=== PATIENT | female | born 1955 | race Caucasian/White ===

== ENCOUNTER 2019-05-11 16:00 | Emergency (ER) | payer BC, OTHER ==
[2019-05-11] MEDS ORDERED: SODIUM CHLORIDE 0.9% 1,000 ML IV STA (16:18)
[2019-05-11] MEDS ORDERED: MORPHINE SULFATE 4 MG/ML SYRINGE IV STA (16:18)
[2019-05-11] MEDS ORDERED: DIPH,PERTUS(ACELL)TETVAC-LF 0.5 ML VIAL IM ONE (16:27)
--- NOTE | 2019-05-11 16:34 | ED ---
General Adult HPI - General Source: patient, EMS, RN notes reviewed, old records reviewed Mode of arrival: EMS Limitations: no limitations <Gold Pro - Last Filed: 05/11/19 18:18> <Rehan Mitchell - Last Filed: 05/11/19 18:41> - General Chief complaint: Fall Stated complaint: Fall Time Seen by Provider: 05/11/19 16:09 - History of Present Illness Initial comments: 63-year-old female patient with no pertinent past history presents to ED chief complaint of fall. Patient daughter provides much of history taking. Reports the patient was carrying laundry up approximately 10 wooden stairs. Reports the patient slipped at the top and fell all the way down. She does report that there was loss of consciousness of approximately 5 minutes. Patient is currently complaining of pain in her back and pain in her hand. Denies any headache or changes in vision. Denies any symptoms blood thinners. Denies any other complaints. Systemic: Pt denies fatigue, fever/chills, rash. Pt denies weakness, night sweats, weight loss. Neuro: Pt denies headache, visual disturbances, syncope or pre-syncope. HEENT: Pt denies ocular discharge or irritation, otalgia, rhinorrhea, pharyngitis or notable lymphadenopathy. Cardiopulmonary: Pt denies chest pain, SOB, heart palpitations, dyspnea on exertion. Abdominal/GI: Pt denies abdominal pain, n/v/d. : Pt denies dysuria, burning w/ urination, frequency/urgency. Denies new onset urinary or bowel incontinence. MSK: Pt denies myalgia, loss of strength or function in extremities. Neuro: Pt denies new onset weakness, paresthesias. (Gold Pro) - Related Data Allergies Allergy/AdvReac Type Severity Reaction Status Date / Time No Known Allergies Allergy Verified 05/11/19 16:06 Review of Systems ROS Other: All systems not noted in ROS Statement are negative. <Gold Pro - Last Filed: 05/11/19 18:18> ROS Other: All systems not noted in ROS Statement are negative. <Rehan Mitchell - Last Filed: 05/11/19 18:41> ROS Statement: Those systems with pertinent positive or pertinent negative responses have been documented in the HPI. Past Medical History Past Medical History: Hypertension, Thyroid Disorder History of Any Multi-Drug Resistant Organisms: None Reported Past Surgical History: No Surgical Hx Reported Past Psychological History: No Psychological Hx Reported Smoking Status: Never smoker Past Alcohol Use History: Occasional Past Drug Use History: None Reported <Gold Pro - Last Filed: 05/11/19 18:18> General Exam Limitations: no limitations <Gold Pro - Last Filed: 05/11/19 18:18> - General Exam Comments Initial Comments: Constitutional: NAD, AOX3, Pt has pleasant affect. HEENT: NC/AT, trachea midline, neck supple, no lymphadenopathy. Posterior pharynx non erythematous, without exudates. External ears appear normal, without discharge. Mucous membranes moist. Eyes PERRLA, EOM intact. There is no scleral icterus. No pallor noted. Cardiopulmonary: RRR, no murmurs, rubs or gallops, no JVD noted. Lungs CTAB in anterior and posterior tompkins. No peripheral edema. Abdominal exam: Abdomen soft and non-distended. Abdomen non-tender to palpation in all 4 quadrants. Bowel sounds active in LLQ. No hepatosplenomegaly. No ecchymosis Neuro: CN II-XII intact. No nuchal rigidity. No raccon eyes, no castaneda sign, no hemotympanum. Mild amount of bilateral paracervical tenderness. Mild amount of thoracic tenderness. MSK: 3 centimeter laceration occipital lobe approximated with 3 juan. Vigorously irrigated. No posterior calf tenderness bilaterally, homans sign negative bilaterally. Posterior tibialis and radial pulse +2 bilaterally. Sensation intact in upper and lower extremities. Full active ROM in upper and lower extremities, 5/5 stregnth. (Gold Pro) Course <Rehan Mitchell - Last Filed: 05/11/19 18:41> Vital Signs 05/11/19 05/11/19 05/11/19 16:02 16:27 16:45 Temperature 96.9 F L 97.9 F Pulse Rate 127 H 110 H Respiratory 16 18 Rate Blood Pressure 184/85 148/74 O2 Sat by Pulse 97 98 Oximetry 05/11/19 18:17 Temperature Pulse Rate 106 H Respiratory 18 Rate Blood Pressure 144/68 O2 Sat by Pulse 97 Oximetry - Reevaluation(s) Reevaluation #1: 05/11/19 18:14 PA supervision: I proceeded [id number] evaluation the patient she did present by EMS after a fall done many steps. She did not trigger the trauma system. She did end up with evidence of a concussion with 45 minutes of loss of consciousness per her son who was present as well as scalp laceration contusions. The remainder the workup is not remarkable. I did a long discussion with the patient family regarding findings due to the presentation patient does require monitoring. No neurosurgical capability at this facility she'll be transferred to [facility]. The patient and family are agreeable with this. Please note the patient maintains a Christy Coma Scale of 15 throughout her emergency department stay. (Rehan Mitchell) Procedures - Laceration Laceration #1 Consent Obtained: verbal consent Site: scalp Size (cm): 3 Description: linear Type of Sutures: other (staple) Number of Sutures: 3 Patient Tolerated Procedure: well, no complications <Gold Pro - Last Filed: 05/11/19 18:18> Medical Decision Making - Lab Data Result diagrams: 05/11/19 16:21 05/11/19 16:21 <Gold Pro - Last Filed: 05/11/19 18:18> - Lab Data Result diagrams: 05/11/19 16:21 05/11/19 16:21 <Rehan Mitchell - Last Filed: 05/11/19 18:41> - Medical Decision Making C3-year[age] female patient presents to ED for evaluation of fall. Patient fell down approximately 10 stairs or loss of consciousness approximately 5 minutes. Upon arrival to ER patient chief complaint was thoracic and cervical neck pain, laceration back of hand, left hand pain. CT brain C-spine was obtained which displayed bilateral scalp hematomas no acute intracranial process. Cervical spine not displaying any acute fracture dislocation. Chest and pelvis was obtained which did not display acute process. Plain film hand was negative. Due to patient's loss of consciousness patient be transferred to [facility] for observation and if necessary neurosurgery consult. Case discussed and patie nt seen by Dr. Mitchell. (Gold Pro) - Lab Data Lab Results 05/11/19 05/11/19 Range/Units 16:21 16:21 WBC 15.7 H (3.8-10.6) k/uL RBC 4.49 (3.80-5.40) m/uL Hgb 14.8 (11.4-16.0) gm/dL Hct 42.2 (34.0-46.0) % MCV 93.8 (80.0-100.0) fL MCH 33.0 (25.0-35.0) pg MCHC 35.2 (31.0-37.0) g/dL RDW 12.2 (11.5-15.5) % Plt Count 295 (150-450) k/uL Neutrophils % 72 % Lymphocytes % 20 % Monocytes % 4 % Eosinophils % 1 % Basophils % 1 % Neutrophils # 11.4 H (1.3-7.7) k/uL Lymphocytes # 3.2 (1.0-4.8) k/uL Monocytes # 0.6 (0-1.0) k/uL Eosinophils # 0.2 (0-0.7) k/uL Basophils # 0.1 (0-0.2) k/uL Sodium 137 (137-145) mmol/L Potassium 3.4 L (3.5-5.1) mmol/L Chloride 101 (98-107) mmol/L Carbon Dioxide 25 (22-30) mmol/L Anion Gap 11 mmol/L BUN 16 (7-17) mg/dL Creatinine 0.66 (0.52-1.04) mg/dL Est GFR (CKD-EPI)AfAm >90 (>60 ml/min/1.73 sqM) Est GFR (CKD-EPI)NonAf >90 (>60 ml/min/1.73 sqM) Glucose 161 H (74-99) mg/dL Calcium 9.9 (8.4-10.2) mg/dL Total Bilirubin 0.3 (0.2-1.3) mg/dL AST 44 H (14-36) U/L ALT 29 (9-52) U/L Alkaline Phosphatase 105 (38-126) U/L Total Protein 7.5 (6.3-8.2) g/dL Albumin 4.6 (3.5-5.0) g/dL Disposition Is patient prescribed a controlled substance at d/c from ED?: No - Out of Hospital Transfer - Req. Specs Out of Hospital Transfer - Requested Specifics: Other Emergency Center ([facility]) <Gold Pro - Last Filed: 05/11/19 18:18> <Rehan Mitchell - Last Filed: 05/11/19 18:41> Clinical Impression: Fall, Scalp hematoma, Concussion Disposition: OTHER INSTITUTION NOT DEFINED Referrals: Jensen Bone MD [Primary Care Provider] - 1-2 days
[2019-05-11 16:46] VITALS: RESP 18
[2019-05-11 16:55] LABS: ALT 29 U/L (9-52); AST 44 U/L (14-36); African American GFR (CKD) >90 (>60 ml/min/1.73 sqM); Albumin 4.6 g/dL (3.5-5.0); Alkaline Phosphatase 105 U/L (38-126); Anion Gap 11 mmol/L; Blood Urea Nitrogen 16 mg/dL (7-17); Calcium 9.9 mg/dL (8.4-10.2); Carbon Dioxide 25 mmol/L (22-30); Chloride 101 mmol/L (98-107); Glucose 161 mg/dL (74-99); Potassium 3.4 mmol/L (3.5-5.1); Sodium 137 mmol/L (137-145); Total Bilirubin 0.3 mg/dL (0.2-1.3); Total Protein 7.5 g/dL (6.3-8.2)
[2019-05-11 16:57] LABS: Basophils # (A) 0.1 k/uL (0-0.2); Basophils % (A) 1 %; Eosinophils # (A) 0.2 k/uL (0-0.7); Eosinophils % (A) 1 %; HCT 42.2 % (34.0-46.0); HGB 14.8 gm/dL (11.4-16.0); Lymphocytes # (A) 3.2 k/uL (1.0-4.8); Lymphocytes % (A) 20 %; MCHC 35.2 g/dL (31.0-37.0); MCV 93.8 fL (80.0-100.0); Mean Platelet Volume 5.8; Monocytes # (A) 0.6 k/uL (0-1.0); Monocytes % (A) 4 %; Neutrophils # (A) 11.4 k/uL (1.3-7.7); Neutrophils % (A) 72 %; Platelet Count 295 k/uL (150-450); RBC 4.49 m/uL (3.80-5.40); RDW 12.2 % (11.5-15.5); WBC 15.7 k/uL (3.8-10.6)
--- NOTE | 2019-05-11 17:00 | XR ---
EXAMINATION TYPE: XR hand complete LT DATE OF EXAM: 05/11/2019 COMPARISON: NONE HISTORY: Left hand pain TECHNIQUE: 3 views FINDINGS: Metacarpals are intact. There is some spurring at the DIP joints. I see no fracture nor dis location. There is spurring at the first carpometacarpal joint. IMPRESSION: Mild osteoarthritis. No fracture seen.
--- NOTE | 2019-05-11 17:24 | CT ---
EXAMINATION TYPE: CT brain sara higgins DATE OF EXAM: 05/11/2019 COMPARISON: None HISTORY: Fall down stairs. Posterior head injury and pain from neck to abdomen. +LOC. CT DLP: 1530.5 mGycm Automated exposure control for dose reduction was used. TECHNIQUE: CT scan of the head and cervical spine are performed without contrast. FINDINGS: Ventricles have normal size. There is no mass effect nor midline shift. There is no sign of intracranial hemorrhage. There is large left parietal scalp hematoma. There is right posterior par ietal scalp hematoma. The calvarium is intact. Cervical vertebra have normal alignment. There is degenerative disc space narrowing at C5-6. Other di sc spaces are fairly normal. Posterior elements are intact. Facet joints are intact. There is minimal cervical hypertrophic facet arthropathy. Skull base is intact. IMPRESSION: Spondylotic changes at C5-6. No fracture. Mild facet arthropathy. No acute intracranial abnormality. Brain appears normal for age. Bilateral parietal scalp hematomas. Right occipital scalp hematoma.
--- NOTE | 2019-05-11 17:26 | XR ---
EXAMINATION TYPE: XR chest 1V DATE OF EXAM: 05/11/2019 COMPARISON: NONE HISTORY: Pain after falling TECHNIQUE: Single frontal view of the chest is obtained. FINDINGS: There is no heart failure nor confluent pneumonic infiltrate. Costophrenic angles are tiffanie r. There is some linear mild infiltrate at the pulmonary mike. Thoracic aorta is atheromatous. There is no pleural effusion. IMPRESSION: Perihilar mild pulmonary infiltrates. No obvious heart failure. No pneumothorax.
--- NOTE | 2019-05-11 17:40 | CT ---
EXAMINATION TYPE: CT ChestAbdPelvis w con DATE OF EXAM: 05/11/2019 COMPARISON: None HISTORY: Fall down stairs. Posterior head injury and pain from neck to abdomen. +LOC. CT DLP: 1105.2 mGycm Automated exposure control for dose reduction was used. CONTRAST: CT scan of the chest, abdomen and pelvis is performed without Oral Contrast and with IV Contrast, pat ient injected with 100 mL of Isovue 300. FINDINGS: There is some mild subsegmental atelectasis at the posterior lung tompkins. There is no pleural effusio n or pneumothorax. Heart size is normal. There is no pericardial effusion. There is no mediastinal ad enopathy. Thoracic aorta is intact without evidence of aneurysm or dissection. Stomach appears normal. Liver spleen pancreas gallbladder appear normal. Bile ducts are not dilated. There is no adrenal mass. There is 1.5 cm cortical cyst anterior right kidney. Kidneys show satisfact ory contrast opacification. There is no hydronephrosis. Ureters are not dilated. There is no retroper itoneal adenopathy. Bladder distends smoothly. There is no inguinal hernia. There is no free fluid in the pelvis. There is no mesenteric edema. There is no ascites or free air. There are sigmoid diverti cula without evidence of diverticulitis. Uterus is anteverted. Thoracic and lumbar spine appear intac t without evidence of compression fracture. Shoulder joints appear intact. The ribs appear intact. Th ere is bilateral L5 spondylolysis with a 5 mm L5-S1 spondylolisthesis. Bony pelvis is intact. Proximal femurs and hip joints are intact. Sacroiliac joints appear normal. Th e sternum is intact. There is no evidence of thickened appendix. There is no sign of a bowel obstruction. IMPRESSION: There is minimal subsegmental atelectasis at the lung bases. L5 spondylolysis with minimal first-degree L5-S1 spondylolisthesis. No acute fracture seen. No sign o f acute traumatic injury within the chest abdomen pelvis.
[2019-05-11 18:17] VITALS: BP 144/68; PULSE 106
[2019-05-11 18:47] VITALS: TEMP 98.6
== END 2019-05-11 18:57 | disposition other institution (70) ==
LOC: EC 16:00
DX: S61.412A Laceration without foreign body of left hand, initial encounter (principal); S06.9X2A Unspecified intracranial injury with loss of consciousness of 31 minutes to 59 minutes, initial encounter; S00.03XA Contusion of scalp, initial encounter; M54.2 Cervicalgia; I10 Essential (primary) hypertension; Z23 Encounter for immunization; W10.8XXA Fall (on) (from) other stairs and steps, initial encounter; Y93.89 Activity, other specified; Y92.009 Unspecified place in unspecified non-institutional (private) residence as the place of occurrence of the external cause
CPT/HCPCS: 36415; 80053; 85025; 73130; 71045; 72125; 70450; 71260; 74177; 90715; 99285; 90471; 96374; 96361; 12002; J2270; Q9967; 99284

== ENCOUNTER → 2024-02-07 | Outpatient (CLI) | payer MEDICARE | END | disposition home or self-care (01) | LOC: LABWHC1 10:23 | DX: Z22.322 Carrier or suspected carrier of Methicillin resistant Staphylococcus aureus | CPT/HCPCS: 87070 ==

== ENCOUNTER 2024-02-15 09:00 | Day surgery (SDC) | payer MEDICARE ==
[~2024-02-15 09:00] MED LIST: ACETAMINOPHEN TAB 500 MG TAB ONE; DEXAMETHASONE SOD PHOSPHATE 4 MG/ML 1 ML VIAL ONE; LACTATED RINGERS 1,000 ML BAG ONE; MELOXICAM 7.5 MG TAB ONE; MIDAZOLAM 2 MG/2 ML VIAL ONE; ONDANSETRON 4 MG/2 ML VIAL ONE; PHENYLEPHRINE 10 MG/ML VIAL ONE; PROPOFOL 10 MG/ML 20 ML VIAL IV ONE; ROPIVACAINE 1,100 MG, SODIUM CHLORIDE 0.9% 500 ML 330 ML, EMPTY PAIN BALL 1 EACH MISCELLANE ONE; ROPIVACAINE 5 MG/ML 30 ML VIAL ONE; SODIUM CHLORIDE 0.9% 1,000 ML BAG ONE; SODIUM CHLORIDE 0.9% 50 ML BAG ONE; TRANEXAMIC 1,000 MG/100ML-NACL PREMIX BAG ONE; ceFAZolin 1,000 MG VIAL ONE; fentaNYL (PF) 50 MCG/ML 2 ML AMP ONE
[2024-02-15] MEDS ORDERED: HYDROmorphone 0.5 MG/0.5 ML SYRINGE ONE ×4 (12:49→20:58)
[2024-02-15] MEDS ORDERED: SENNOSIDES-DOCUSATE SODIUM 1 EACH TAB PO ONE ×2 (20:57)
[2024-02-16] MEDS ORDERED: TRIAMTERENE-HCTZ 37.5-25MG 1 EACH CAP ONE (00:01)
[2024-02-16] MEDS ORDERED: SODIUM CHLORIDE 0.9% 50 ML BAG ONE (00:01)
[2024-02-16] MEDS ORDERED: ceFAZolin 1,000 MG VIAL ONE (00:01)
[2024-02-16] MEDS ORDERED: LEVOTHYROXINE 88 MCG TAB ONE (00:01)
[2024-02-16] MEDS ORDERED: HYDROcodone/APAP 5-325MG 1 EACH TAB ONE ×6 (06:06→21:39)
[2024-02-16] MEDS ORDERED: RIVAROXABAN 10 MG TAB PO ONE ×2 (07:56)
[2024-02-16] MEDS ORDERED: hydroCHLOROthiazide 25 MG TAB ONE ×2 (07:58)
[2024-02-16] MEDS ORDERED: LOSARTAN 25 MG TAB ONE ×2 (08:01)
[2024-02-16] MEDS ORDERED: SENNOSIDES-DOCUSATE SODIUM 1 EACH TAB PO ONE ×2 (21:37)
[2024-02-16] MEDS ORDERED: ALPRAZolam 0.25 MG TAB ONE ×2 (21:38)
[2024-02-17] MEDS ORDERED: RIVAROXABAN 10 MG TAB PO ONE ×2 (09:42)
[2024-02-17] MEDS ORDERED: LOSARTAN 25 MG TAB ONE ×2 (09:42)
--- NOTE | 2024-02-18 15:56 | OP ---
OPERATIVE REPORT DATE OF SERVICE : 02/15/2024 PREOPERATIVE DIAGNOSIS: Left knee severe tricompartmental osteoarthrosis. POSTOPERATIVE DIAGNOSIS: Left knee severe tricompartmental osteoarthrosis. PROCEDURE: Left total knee arthroplasty - cemented - posterior stabilized. FORMULA CHECKER: POLLY Malin. ANESTHESIA: Spinal/regional. PREP: DuraPrep. INDICATION FOR PROCEDURE: The patient is a 68-year-old female who presents with progressive left knee pain secondary to osteoarthrosis despite conservative measures. A discussion of the risks and benefits of operative intervention versus continued conservative measures was made with the patient. She opted to proceed with surgery. Operative risks to include infection, neurovascular injury, development of blood clots, fracture, possible component loosening/failure, and possible need for subsequent procedures was discussed. Informed consent was obtained. DESCRIPTION OF PROCEDURE: The patient was brought to the operating room and after induction of spinal anesthesia, the left lower extremity was prepped and draped in a normal fashion. The limb was elevated to facilitate exsanguination. The tourniquet was inflated to 270 mmHg. A longitudinal incision then extending 3 fingerbreadths above the superior pole of patella to the medial aspect of the tibial tubercle was then made. Skin and subcutaneous tissues were divided sharply. Electrocautery was used for hemostasis. A medial parapatellar arthrotomy was performed. The medial soft tissues to include the superficial and deep portions of medial collateral ligament and pes anserine tendons were elevated subperiosteally. I felt I had adequate medial exposure. The patella was everted. A portion of the retropatellar fat pad was excised sharply. The knee was then flexed and retractors were placed. The anterior cruciate ligament was sacrificed. A starting hole was made in the distal femur 1 cm anterior to the posterior cruciate ligament margin in line with the femoral shaft. The distal cutting block was then pinned in place, planning on a 5 degree valgus distal cut. A distal cut was then made planning on 10 mm resection. The sizing block was then utilized. I felt size 6 was most appropriate. The cutting block was pinned in place. The anterior, posterior, and chamfer cuts were then made. The bone fragments were removed. The notch guide was then placed and the notch was prepared. The bone block was removed in one fragment. The trial size 6 femoral component was then placed and was fully seated. There was good anterior to posterior and medial to lateral fit. The distal pedicles were then drilled. The trial component was removed. Attention was then paid towards preparing the proximal tibia. An extramedullary guide was utilized in line with the tibial shaft and second metatarsal distally. I planned on 2 mm resection from the medial compartment. 3 degrees of posterior slope was planned. The cutting block was pinned in place. The posterior soft tissues were protected with a retractor. The proximal tibia cut was made and the bone removed in 1 fragment. The remnants of the medial and lateral menisci were excised at the capsular junction with electrocautery. The posterior osteophytes were carefully removed with a curved osteotome. The tibia sized most appropriately size 5. The trial femoral and tibial components were placed along with a 10 mm articular surface. The knee was taken through range of motion. I was able to obtain full flexion and extension with good stability with varus and valgus stress. The tibial rotation was marked with electrocautery in line with the medial 1/3 of the tibial tubercle. Attention was then paid towards preparing the patella. A patellar reamer was utilized, taking this down to 14 mm of bone stock. A good flush cut was made. The patella size most appropriately was 35 mm. The pedicles were drilled. Care was taken to medialize the component. The knee was taken through range of motion. Good patellofemoral tracking with no hands technique. The trial components were then removed. The tibia was then prepared in the appropriate rotation with the appropriate drill and keel punch. The flexion and extension gaps were checked and felt to be symmetric at 10 mm. The MCL was then pie crusted with a 15 blade to aid in soft tissue balancing. The bony surfaces were prepared with pulsatile lavage and dried. Several additional drill holes were made in the proximal medial tibial plateau as the bone was quite sclerotic. The tibial component, femoral component, and patellar components were then cemented in place. Excess cement was removed. A trial 10 mm articular surface was placed and the knee was put in full extension. After the cement had sufficiently hardened again, the knee was taken through range of motion and was felt to be stable with varus and valgus stress and extension and flexion. The trial articular surface was removed and the final 10 mm articular surface was fully seated. Care was taken to avoid any soft tissue interposition. Pulsatile lavage was again utilized. The tourniquet was deflated with approximately 55 minutes total tourniquet time. Final hemostasis was obtained with electrocautery. The medial parapatellar arthrotomy was closed with #2 Ethibond suture. The subcutaneous tissue was reapproximated with interrupted 2-0 Vicryl sutures. The skin was reapproximated with 3- 0 subcuticular Stratafix suture. Skin tape and adhesive were applied. A sterile dressing was applied. The patient was then awoken from sedation and transferred to the recovery room in good condition. Blood loss is estimated at 50 mL. No complications were incurred. Sponge and needle counts were correct at the end of the case. MMODL / IJN: [id number] /
--- NOTE | 2024-03-14 10:20 | XR ---
Patient: Daphne Sinclair Ordering Physician: Unknown, Unknown ID: [id number] Phone, Pager: Phone: N/A Pager: N/A : N/A Age/Gender: N/A, F Primary Location: N/A Procedure: LT KNEE 2V Study Date: 02/15/2024 9:23:00 AM EXAMINATION TYPE: Knee X-Ray Limited Left DATE OF EXAM: 02/15/2024 CLINICAL HISTORY: pain TECHNIQUE portable postop left knee COMPARISON: None. FINDINGS: Total knee arthroplasty with femoral and tibial components appearing well seated. Postopera tive changes of the soft tissues noted. IMPRESSION: As above
== END 2024-02-17 16:15 | disposition home or self-care (01) ==
LOC: OR 09:00 → UNDOADMIN 09:25 → DISRECOVER 09:25 → OR 02-17 16:15 → UNDODISIN 02-17 16:30
PROVIDERS: ATTEND Orthopaedic Surgery
DX: M17.12 Unilateral primary osteoarthritis, left knee (principal); E03.9 Hypothyroidism, unspecified; I11.0 Hypertensive heart disease with heart failure; F41.9 Anxiety disorder, unspecified; Z79.899 Other long term (current) drug therapy
CPT/HCPCS: 64448; 64999